=== PATIENT | female | born 1995 | race African-American/Black ===

== ENCOUNTER 2020-03-16 19:11 | Emergency (ER) | payer MEDICAID ==
[~2020-03-16] VITALS: Ht 167.6 cm; Wt 87.0 kg
[2020-03-16] MEDS ORDERED: SODIUM CHLORIDE 0.9% 1,000 ML IV ONE (20:01)
[2020-03-16] MEDS ORDERED: ASPIRIN 81MG TABLET PO ONE (20:15)
[2020-03-16] MEDS ORDERED: NITROGLYCERIN 0.4MG TABLET SL SL PRN (20:15)
[2020-03-16] MEDS ORDERED: LORAZEPAM 2MG/ML CPJ IV ONE (20:15)
[2020-03-16 20:30] LABS: BASOPHILS % 0.5 % (0.0-2.0); CHLORIDE 104 mEq/L (98-107); EOSINOPHILS % 0.1 % (0.0-5.0); HEMATOCRIT. 37.1 % (36.0-48.0); HEMOGLOBIN. 12.6 g/dL (12.0-16.0); LYMPHOCYTES % 17.8 % (20.0-50.0); MEAN CORPUSCULAR HEMOGLOBIN 25.2 pg (28.0-32.0); MEAN CORPUSCULAR VOLUME 74.4 fL (81.0-99.0); MEAN PLATELET VOLUME 8.4 fl (7.4-10.4); MONOCYTES % 7.4 % (2.0-8.0); NEUTROPHILS % 74.2 % (40.0-76.0); PLATELET 382 x1000/uL (130-400); RED CELL DISTRIBUTION WIDTH 14.8 % (11.6-14.6)
[2020-03-16 20:35] LABS: PARTIAL THROMBOPLASTIN TIME 26.2 sec (23.4-31.0); PROTHROMBIN TIME 10.7 sec (9.6-11.0)
[2020-03-16 20:39] LABS: HCG SCREEN POSITIVE
[2020-03-16] MEDS ORDERED: POTASSIUM CHLORIDE 20MEQ TABLET SR PO ONE (21:15)
[2020-03-17 01:00] VITALS: BP 122/75
== END 2020-03-17 01:19 | disposition home or self-care (01) ==
LOC: ER 19:11
DX: O26.891 Other specified pregnancy related conditions, first trimester (principal); R07.89 Other chest pain; O99.321 Drug use complicating pregnancy, first trimester; F16.90 Hallucinogen use, unspecified, uncomplicated; F12.90 Cannabis use, unspecified, uncomplicated; Z3A.01 Less than 8 weeks gestation of pregnancy
CPT/HCPCS: 36415; 71045; 76801; 76817; 80053; 83880; 84484; 84702; 84703; 85025; 85610; 85730; 93005; 99285; J7030; Z7610